=== PATIENT | female | born 1975 | race Caucasian/White ===

== ENCOUNTER 2018-03-18 07:00 | Day surgery (SDC) | payer BC ==
[~2018-03-18] VITALS: Ht 170.2 cm; Wt 133.8 kg
[~2018-03-18 07:00] MED LIST: ALEVE220 MG PO; ALPRAZOLAM0.25 MG PO; AMLODIPINE BESYL5 MG PO; BUPROPION HCL150 M2 PO; LISINOPRIL-HCT1 EACH PO; VENTOLIN HFA18 GM
--- NOTE | 2018-03-18 09:09 | NUR ---
UP TO BR. WAITING IS COMFORTABLE.
--- NOTE | 2018-03-18 09:40 | NUR ---
PT WAS IN BED, ALERT AND ORIENTED. SHE MENTIONED THAT SHE WAS WAITING FOR HER TO COME AFTER HE GETS THE KIDS OFF TO SCHOOL. SHE WAS ANXIOUS, WE HAD A PLEASANT CONVERSATION. EXPLAINED THE ORDER OF THE PROCESS TODAY, SHE SEEMED TO RELAX SOME. PT DECLINED PRAYER, SEEMED TO BE PAYING TOO MUCH ATTENTION TO IV. SHE SAID IT FEELS LIKE IT IS PULLING, AND WAS CONCERNING TO HER. I NOTI- FIED HER RN AKIN WHO WENT IMMEDIATELY IN TO CARE FOR PT. WILL FOLLOW NEEDED
[2018-03-18] MEDS ORDERED: NORCO 5-325 TA1 EACH PO (12:09)
[2018-03-18] MEDS ORDERED: IBUPROFEN800 MG PO (12:10)
--- NOTE | 2018-03-18 12:28 | NUR ---
UP TO BR VOIDS 200MLS WITH RED DRAINAGE. RUDI PAD CHANGED. AMB WELL. HAS EATEN SOUP PUDDING AND TAKEN WATER.
--- NOTE | 2018-03-18 12:53 | NUR ---
DENIES PAIN OR NEED FOR PAIN MEDICINE. HAS BEEN OFFERED.
--- NOTE | 2018-03-18 14:13 | NUR ---
03/18/18 1413 Zainab Lewis 1112 PT ARRIVED IN PACU SLEEPY. 1130 AWAKE SIPPING ON WATER.
--- NOTE | 2018-03-24 15:01 | OR ---
[facility] [address] [place], [place] [address] Signed DATE OF OPERATION: 03/18/2018 SURGEON: Terra Carrillo MD PREOPERATIVE DIAGNOSES: Menometrorrhagia, endometrial polyps. POSTOPERATIVE DIAGNOSES: Menometrorrhagia, endometrial polyps, pending pathology. PROCEDURES: Hysteroscopy, D and C, resection of polyps. ANESTHESIA: General LMA. ESTIMATED BLOOD LOSS: Minimal. DRAINS: None. INDICATIONS AND FINDINGS: The patient is a 42-year-old female, who has been having abnormal bleeding for some time. Ultrasound had been done, which revealed a probable endometrial polyp. At the time of surgery, exam under anesthesia revealed a normal-size uterus. No adnexal masses were appreciated. The uterus sounded to 8.5 cm. There were multiple polyps within the cavity. DESCRIPTION OF PROCEDURE: The patient was prepped and draped in the dorsal lithotomy position. A weighted speculum was placed in the posterior cul-de-sac and the anterior lip of the cervix was visualized and grasped with a single-tooth tenaculum. The cavity was sounded to 8.5 cm. The endocervical canal was then dilated to a #8 dilator. The MyoSure device was then placed using saline as the medium. The cavity was evaluated and many polyps and abnormal tissue were identified. Hysteroscopy was then completed and D and C was done with a large amount of tissue removed. The hysteroscope was replaced and again there still appeared to be quite a bit of tissue. The MyoSure LITE device was then used and the remaining polyps and the irregularities both anteriorly and posteriorly were removed using the MyoSure LITE device. The fluid deficit alarm kept sounding, though there Electronically Signed By: TERRA CARRILLO MD 03/24/18 1501 PATIENT NAME: MAGUE PINO OPERATIVE REPORT DATE OF : 77 REPORT #: [id number] PHYSICIAN: TERRA CARRILLO MD PCP: LON VALDIVIA PAC REPORT IS CONFIDENTIAL AND NOT TO BE RELEASED WITHOUT AUTHORIZATION [facility] [address] [place], [place] [address] Signed was no evidence of any evidence of any fluid retention. There was quite a bit of fluid underneath the patient and on the floor and it was felt that this was related to the leaking from the perineum. Following this, the procedure was complete. The tenaculum was removed. There was no evidence of ongoing bleeding. The procedure was terminated with removal of the speculum. The patient was taken to the recovery room in good condition. Terra Carrillo MD PJW/MODL /[id number] cc: Lon Valdivia PAC Copies: ~ Electronically Signed By: TERRA CARRILLO MD 03/24/18 1501 PATIENT NAME: MAGUE PINO OPERATIVE REPORT DATE OF : 77 REPORT #: [id number] PHYSICIAN: TERRA CARRILLO MD PCP: LON VALDIVIA PAC REPORT IS CONFIDENTIAL AND NOT TO BE RELEASED WITHOUT AUTHORIZATION
== END 2018-03-18 12:45 | disposition home or self-care (01) ==
LOC: DS 07:00
PROVIDERS: Obstetrics & Gynecology
PROC: 0UDB7ZZ Extraction of Endometrium, Via Natural or Artificial Opening (ICD-10-PCS; 2018-03-18)
PROC: 0UJD8ZZ Inspection of Uterus and Cervix, Via Natural or Artificial Opening Endoscopic (ICD-10-PCS; 2018-03-18)
PROC: 0UB97ZZ Excision of Uterus, Via Natural or Artificial Opening (ICD-10-PCS; principal; 2018-03-18 08:45)
DX: N84.0 Polyp of corpus uteri (principal); N92.1 Excessive and frequent menstruation with irregular cycle; E66.01 Morbid (severe) obesity due to excess calories; F41.1 Generalized anxiety disorder; F32.9 Major depressive disorder, single episode, unspecified; I10 Essential (primary) hypertension; K21.9 Gastro-esophageal reflux disease without esophagitis; Z79.899 Other long term (current) drug therapy; Z88.1 Allergy status to other antibiotic agents; Z88.8 Allergy status to other drugs, medicaments and biological substances; Z68.42 Body mass index [BMI] 45.0-49.9, adult
CPT/HCPCS: 00952; J1100; J1885; J2250; J2405; J2704; J3010; J7120